=== PATIENT | female | born 1980 ===

== ENCOUNTER 2016-11-06 19:07 | Emergency (ER) | payer SELFPAY ==
[2016-11-06] MEDS ORDERED: ALBUTEROL SULFATE 2.5 MG/3 ML NEB ONE (19:17)
[2016-11-06 19:48] LABS: BASOPHILS # (AUTO) 0.03 10*3/UL; BASOPHILS % (AUTO) 0.3 % (0-1); EOSINOPHILS % (AUTO) 1.8 % (0-8); HEMATOCRIT 47.7 % (37.0-47.0); IMM GRAN % (AUTO) 0.3 % (0-5); IMM GRAN# (AUTO) 0.03 10*3/UL; LYMPHOCYTES # (AUTO) 3.04 10*3/uL; LYMPHOCYTES % (AUTO) 32.6 % (10-50); MEAN CORPUSCULAR HEMOGLOBIN 31.1 PG (27-31); MEAN CORPUSCULAR HGB CONC 33.5 g/dL (33-37); MEAN PLATELET VOLUME 10.1 FL (7.4-12.2); MONOCYTES # (AUTO) 0.59 10*3/UL (0.3-0.8); MONOCYTES % (AUTO) 6.3 % (5-15); NEUTROPHILS # (AUTO) 5.47 10*3/UL; NEUTROPHILS % (AUTO) 58.7 % (50-80); PLATELET MORPHOLOGY COMMENT NORMAL MORPHOLOGY (NORM); RDW COEFFICIENT OF VARIATION 14.6 % (11.5-14.5); RED BLOOD COUNT 5.15 10^6/uL (4.20-5.40); WHITE BLOOD COUNT 9.33 10^3/uL (4.8-10.8)
[2016-11-06 19:58] LABS: ASPARTATE AMINO TRANSFERASE 30 IU/L (8-39); BILIRUBIN,TOTAL 1.2 mg/dL (0.3-1.2); BLOOD UREA NITROGEN 7 mg/dL (7-22); BUN/CREATININE RATIO 11.66 (6-20); CALCIUM 10.1 mg/dL (8.7-10.7); CHLORIDE 103 meq/L (98-112); CREATININE 0.6 mg/dL (0.50-1.20); EST GLOMERULAR FILTRATION > 60 (>60 ml/min/1.73m(2)); GLUCOSE 86 mg/dL (78-110); POTASSIUM 4.2 meq/L (3.8-5.2); SODIUM 142 meq/L (135-145); TOTAL PROTEIN 8.6 g/dL (6.1-8.0)
[2016-11-06 20:05] LABS: SERUM ALCOHOL < 10 mg/dL (0-10)
--- NOTE | 2016-11-06 20:08 | PDOC ---
Gen Adult / Medical Screen HPI - General Chief Complaint: Clear for Confinement/DUI Draw Stated Complaint: CLEAR FOR CONFINEMENT Date Seen by Provider: 11/06/16 Time Seen by Provider: 19:15 Source: POSITIVE: Patient, Police Exam Limitations: POSITIVE: Other (Patient is not cooperative with answering questions) Nurse's Notes Reviewed & Considered: Yes EMS Report Reviewed & Considered: Verbal - History of Present Illness Initial Comments: The patient is a 36-year-old female who is brought to the emergency department after being arrested for DUI. She apparently was in her car parked on next to a private residence. When law enforcement contacted her she was confused and did not know where she was or where she was going. She admitted to law enforcement that she had taken marijuana, meth, Suboxone and alcohol. She is brought to the emergency department for clearance prior to going to prison. When she arrives here she is not cooperative at all with questioning. Her affect is off and she laughs when you ask her questions. She states that she does not know where she is from or where she is going. She states that she needs her inhaler and states that she does have asthma. She states she does not know what inhaler she normally uses. She admits to smoking cigarettes here is the only thing she states she uses. She denies history of diabetes however she is not cooperative at all with questioning. - Patient Home Medications Home Medications: Home Medications Albuterol 2 puff IH Q4H PRN #1 aer.refill 11/06/16 - Patient Allergies Allergies/Adverse Reactions: Allergies Allergy/AdvReac Type Severity Reaction Status Date / Time Unable to Assess Allergy Unverified 11/06/16 20:04 Past Medical History Past Medical History Reviewed: Other (please comment) (Difficult to obtain history) ROS - Limitations ROS Limitations: Uncooperative Gen Adult/Medical Screen Exam - General Appearance General Appearance: POSITIVE: Other (The patient is awake, she is moving all extremities, uncooperative) - HEENT HEENT: POSITIVE: Head Inspection Nml, Eyes Inspection Nml, Ears Inspection Nml, Pharynx Inspect. Nml, PERRL, EOMI - Neck Neck: POSITIVE: Normal Inspection. NEGATIVE: Lymphadenopathy - Respiratory Respiratory: POSITIVE: No Respiratory Distress, Wheezes (She does have expiratory wheezes bilaterally) - Cardiovascular Cardiovascular: POSITIVE: Regular Rate & Rhythm, No Murmur Peripheral Pulses: Dorsalis-pedis (R): 2+, Dorsalis-pedis (L): 2+ - Abdomen Abdomen: Soft: (All Quadrants), No Palpabale Mass: (All Quadrants) - Neurological / Psychological Orientation: POSITIVE: Uncooperative - Skin Skin: POSITIVE: Normal Color, No Rash - Extremities Extremity: Normal ROM: (All Extremities) Gen Adlt/Medical Scrn Progress - Results Reviewed by me Lab Results Reviewed: Yes Lab Results:: Laboratory Results 11/06/16 Range/Units 19:45 WBC 9.33 (4.8-10.8) 10^3/uL RBC 5.15 (4.20-5.40) 10^6/uL Hgb 16.0 (12.0-16.0) g/dL Hct 47.7 H (37.0-47.0) % MCV 92.6 (81-99) FL MCH 31.1 H (27-31) PG MCHC 33.5 (33-37) g/dL RDW Std Deviation 48.9 (39-50) fL RDW Coeff of Mendez 14.6 H (11.5-14.5) % Plt Count 278 (140-350) 10*3/uL MPV 10.1 (7.4-12.2) FL Immature Gran % (Auto) 0.3 (0-5) % Neut % (Auto) 58.7 (50-80) % Lymph % (Auto) 32.6 (10-50) % Warrick % (Auto) 6.3 (5-15) % Eos % (Auto) 1.8 (0-8) % Baso % (Auto) 0.3 (0-1) % Immature Gran # (Auto) 0.03 10*3/UL Neut # (Auto) 5.47 10*3/UL Lymph # (Auto) 3.04 10*3/uL Warrick # (Auto) 0.59 (0.3-0.8) 10*3/UL Eos # (Auto) 0.17 10*3/UL Baso # (Auto) 0.03 10*3/UL WBC Morphology Comment Normal morphology (NORM) Plt Morphology Comment Normal morphology (NORM) RBC Morph Comment Normal morphology (NORM) Sodium 142 (135-145) meq/L Potassium 4.2 (3.8-5.2) meq/L Chloride 103 (98-112) meq/L Carbon Dioxide 26 (23-33) meq/L Anion Gap 13 (5-20) BUN 7 (7-22) mg/dL Creatinine 0.6 (0.50-1.20) mg/dL Estimated GFR > 60 (>60 ml/min/1.73m(2)) BUN/Creatinine Ratio 11.66 (6-20) Glucose 86 (78-110) mg/dL Calculated Osmolality 290.0 (267-292) mOsm/kg Calcium 10.1 (8.7-10.7) mg/dL Total Bilirubin 1.2 (0.3-1.2) mg/dL AST 30 (8-39) IU/L ALT 33 (9-52) IU/L Alkaline Phosphatase 58 (38-126) IU/L Total Protein 8.6 H (6.1-8.0) g/dL Albumin 5.0 H (3.5-4.8) g/dL Globulin 3.6 (2.50-4.10) g/dL Albumin/Globulin Ratio 1.30 (1.3-2.0) mg/g TSH 9.96 H (0.2700-4.2000) uIU/mL Free T4 0.94 (0.93-1.71) ng/dL Serum HCG, Qual Negative Salicylates < 1.0 (0-20) mg/dl Acetaminophen < 10.0 (0-30) ug/mL Serum Alcohol < 10 (0-10) mg/dL - Patient's Progress MDM / ED Course: The patient is wheezy on arrival and states she has a history of asthma. She was given albuterol neb treatment. Blood was drawn and was all unremarkable. Vital signs were stable. She was allowed to use her own albuterol inhaler at her request. She would not allow me to reevaluate her lungs. Vital signs remained stable. She remained uncooperative however at times was very purposeful and at one point she flipped off the nurse when she asked her a question. At this point her presentation is most consistent with intoxication with some type of drug However this cannot be confirmed as she will not provide a urine specimen. She has not exhibited any type of clinical deterioration here in the emergency room and is considered stable for discharge to the prison. She apparently does have a history of asthma and was advised to continue her Advair and albuterol inhaler. Her albuterol inhaler is almost gone and she was given a prescription for a new one. She is advised return to the emergency department if her current state of intoxication does not resolve over the next 12-24 hours or if she develops any worsening or change in symptoms. - Consult Counseled: POSITIVE: Patient, RE: Lab Results, RE: DX, RE: Need for F/U Patient Care Time - Estimated PCT Patient Care Time (In Minutes): 30 Vital Signs - VS Reviewed Vital Signs Reviewed: Yes Discharge Clinical Impression: Asthma Condition: Stable Prescriptions / Orders: Albuterol 2 puff IH Q4H PRN #1 aer.refill PRN Reason: Wheezing Additional Instructions: Presentation is consistent with some type of drug intoxication. Vital signs are stable and blood work is unremarkable. We were unable to obtain a urinalysis here for tox screening. At this point the patient appears to be medically stable for transfer to prison. Continue Advair inhaler twice a day and albuterol inhaler 2 puffs every 4 hours as needed. Recommend returning to the emergency room if any increased difficulty breathing or if intoxication symptoms do not resolve within 12-24 hours. Follow Up With: NONE,NONE [Primary Care Provider] -
[2016-11-06 20:41] VITALS: RESP 18; TEMP 97.3
[2016-11-06 20:54] LABS: FREE T4 (FREE THYROXINE) 0.94 ng/dL (0.93-1.71)
== END 2016-11-06 21:28 | disposition home or self-care (01) ==
LOC: ER 19:07
DX: F10.129 Alcohol abuse with intoxication, unspecified (principal); J45.909 Unspecified asthma, uncomplicated
CPT/HCPCS: 80053; 80320; 80329; 84439; 84443; 84703; 85025; 94640; 99282